=== PATIENT | female | born 1985 | race Caucasian/White ===

== ENCOUNTER 2025-10-12 12:10 | Emergency (ER) | payer OTHER ==
[2025-10-12] MEDS ORDERED: Acetaminophen 500 MG TAB ONE (13:06)
== END 2025-10-12 14:37 | disposition home or self-care (01) ==
LOC: ERS 12:10
DX: J06.9 Acute upper respiratory infection, unspecified (principal); F17.290 Nicotine dependence, other tobacco product, uncomplicated; Z79.899 Other long term (current) drug therapy
CPT/HCPCS: 71045; 87428